=== PATIENT | female | born 1935 | race African-American/Black ===

== ENCOUNTER 2016-09-02 15:17 | Inpatient (IN) | payer OTHER ==
[~2016-09-02] VITALS: Ht 165.1 cm; Wt 61.7 kg
[2016-09-02 15:47] LABS: BASOPHILS % (AUTO) 0.7 % (0.0-2.0); EOSINOPHILS # (AUTO) 0.1 /CMM (0.0-0.7); EOSINOPHILS % (AUTO) 0.8 % (0.0-6.0); HEMATOCRIT 40 % (33-45); HEMOGLOBIN 13.6 g/dL (11.5-14.8); LYMPHOCYTES # (AUTO) 2.9 /CMM (0.8-4.8); LYMPHOCYTES % (AUTO) 44.4 % (20.0-44.0); MEAN CORPUSCULAR HEMOGLOBIN 29 PG (26.0-33.0); MEAN CORPUSCULAR HGB CONC 34 g/dl (31.0-36.0); MEAN CORPUSCULAR VOLUME 84 fL (82-100); MONOCYTES # (AUTO) 0.6 /CMM (0.1-1.30); MONOCYTES % (AUTO) 8.5 % (2.0-12.0); NEUTROPHILS # (AUTO) 2.9 /CMM (1.8-8.9); NEUTROPHILS % (AUTO) 45.6 % (43.0-81.0); PLATELET COUNT (AUTO) 143 /CMM (150-450); RDW COEFFICIENT OF VARIATION 11.8 (11.5-15.0); RED BLOOD CELL COUNT(AUTO) 4.77 MIL/uL (4.0-5.2); WHITE BLOOD COUNT (AUTO) 6.5 K/uL (4.3-11.0)
--- NOTE | 2016-09-02 16:01 | NUR ---
PATIENT ASSIGNED TO [place] [id number]
[2016-09-02 16:03] LABS: ACETAMINOPHEN 0 ug/ml (10-30); ALANINE AMINOTRANSFERASE 9 U/L (12-78); ALBUMIN 3.3 g/dL (3.4-5.0); ALCOHOL, BLOOD < 3 mg/dL (0-0); ALKALINE PHOSPHATASE 115 U/L (46-116); ASPARTATE AMINOTRANSFERASE 11 U/L (15-37); BILIRUBIN,DIRECT 0.1 mg/dL (0.0-0.2); BILIRUBIN,TOTAL 0.4 mg/dL (0.2-1.0); CALCIUM, SERUM 9.1 mg/dL (8.5-10.1); CARBON DIOXIDE 31 mmol/L (21-32); CHLORIDE 103 mmol/L (98-107); CREATININE 0.9 mg/dL (0.6-1.3); GLUCOSE 269 mg/dL (74-106); POTASSIUM 3.4 mmol/L (3.5-5.1); SODIUM SERUM 140 mmol/L (136-145); TOTAL PROTEIN, SERUM 7.3 g/dL (6.4-8.2); UREA NITROGEN, BLOOD 10 mg/dL (7-18)
[2016-09-02 16:34] LABS: APPEARANCE,URINE Cloudy (CLEAR); BILIRUBIN,URINE Negative (NEGATIVE); BLOOD, URINE Small Ery/uL (NEGATIVE); COLOR,URINE Yellow (YELLOW); KETONES,URINE Negative (NEGATIVE); LEUKOCYTE ESTERASE ,URINE Trace (NEGATIVE); NITRITE, URINE Negative (NEGATIVE); PROTEIN,URINE 30 mg/dl (NEGATIVE); UROBILINOGEN,URINE 0.2 EU/dL (0.2)
[2016-09-02 16:36] LABS: UGLUCOSE 500 MG/DL mg/dL (NEGATIVE)
[2016-09-02 16:44] LABS: CANNABINOID, URINE NEGATIVE (NEGATIVE); PHENCYCLIDINE SCREEN,URINE NEGATIVE (NEGATIVE)
[2016-09-02 16:52] LABS: ADD URINE CULTURE YES; BACTERIA,URINE Many /HPF (None Seen); RBC,URINE 0-3 /HPF (0-2); SQUAMOUS EPITHELIAL CELL,UR Rare /HPF (None Seen)
[2016-09-02] MEDS ORDERED: CEPHALEXIN MONOHYDRATE 500 MG CAPSULE PO ONE ×2 (17:00→17:21)
--- NOTE | 2016-09-02 18:34 | NUR ---
REPORT GIVEN TO MERLENE HINOJOSA FOR [facility]
[2016-09-02 20:00] VITALS: BP 181/85
[2016-09-02] MEDS ORDERED: MAG HYDROX/AL HYDROX/SIMETH 30 ML UDC PO PRN (20:30)
[2016-09-02] MEDS ORDERED: MAGNESIUM HYDROXIDE 30 ML UDC PO PRN (20:30)
[2016-09-02] MEDS ORDERED: ACETAMINOPHEN 325 MG TABLET PO PRN (20:30)
[2016-09-02] MEDS ORDERED: LORAZEPAM 0.5 MG TABLET PO PRN (20:30)
[2016-09-02] MEDS ORDERED: TEMAZEPAM 7.5 MG CAPSULE PO PRN (20:30)
[2016-09-02] MEDS ORDERED: [UNRECOGNIZED DRUG - CODE] (21:48)
[2016-09-02] MEDS ORDERED: DONE5TAB34 PO (21:48)
[2016-09-02] MEDS ORDERED: BENA40TA2 PO (21:48)
[2016-09-02] MEDS ORDERED: ASPI-991 PO (21:48)
[2016-09-02] MEDS ORDERED: METF500T4 PO (21:48)
[2016-09-02] MEDS ORDERED: ATOR20TA PO (21:48)
[2016-09-02] MEDS ORDERED: NITR100C15 PO (21:48)
[2016-09-02] MEDS ORDERED: BENA20TA2 PO (21:48)
[2016-09-02] MEDS ORDERED: ONDANSETRON 4 MG TAB.RAPDIS ONE ×2 (22:37→23:12)
[2016-09-02] MEDS ORDERED: BENAZEPRIL HCL 20 MG TABLET PO SCH (23:00)
[2016-09-02] MEDS ORDERED: ONDANSETRON 4 MG TAB.RAPDIS PO PRN (23:00)
--- NOTE | 2016-09-02 23:32 | NUR ---
ADMITTED NOTES THIS 81Y/O FEMALE ADMITTED FROM [facility] ER. IS ON 5150 HOLD , GD PER HOLD PT. HAS NOT BEEN TENDING TO SELF CARE , UP ON ASSESSMENT PT IS A/0 X ,2,3 ,PT IS DEPRESSIVE , COOPERATIVE AT THIS TIME , PSYCHIATRIC DX OF DEPRESSION , MEDICAL DX OF HTN DM HYPERLIPIDEMIA, SKIN ASSESSMENT DONE NOTED OLD SCRATCH SMITH ON BACK PICTURE TAKEN AND PLACED IN CHART NO ACUTE DISTRESS NOTED CONTRABAND CHECK DONE, SAFE ENVIRONMENT PROVIDED , BOTH MD AWARE OF NEW ADMISSION AND MEDICATION, NEW ORDERS RECEIVED AND CARRIED OUT. WILL CONTINUE TO MONITOR FOR SAFETY AND BEHAVIOR .
[2016-09-03 08:00] VITALS: BP 156/80
[2016-09-03] MEDS: SERTRALINE HCL 25 MG TABLET PO SCH (08:20)
[2016-09-03] MEDS: NITROFURANTOIN/NITROFURAN MAC 100 MG CAPSULE PO SCH ×2 (08:21→16:32)
[2016-09-03] MEDS: BENAZEPRIL HCL 20 MG TABLET PO SCH (08:21)
[2016-09-03] MEDS ORDERED: NITROFURANTOIN/NITROFURAN MAC 100 MG CAPSULE PO SCH (09:00)
[2016-09-03 09:33] LABS: CREATININE 0.9 mg/dL (0.6-1.3)
[2016-09-03] MEDS: ASPIRIN EC 81 MG TABLET.DR PO SCH (09:37)
[2016-09-03] MEDS: METFORMIN 500 MG TABLET PO SCH ×2 (09:37→16:33)
[2016-09-03] MEDS ORDERED: DEXTROSE 50%-WATER 50 ML DISP.SYRIN IV PRN (11:30)
[2016-09-03] MEDS: BLOOD SUGAR DIAGNOSTIC 1 EACH STRIP IN SCH ×3 (12:07→21:47)
[2016-09-03] MEDS: INSULIN REGULAR, HUMAN 100 UNIT/ML 3 ML VIAL SQ PRN ×3 (12:14→22:02)
--- NOTE | 2016-09-03 13:25 | NUR ---
Patient spoke with patient regarding a usp facility placement or Assisted Living facility as options. However patient refused and stated that she wanted to return home to her apartment in a senior citizen housing located at [address] [place] [address].
[2016-09-03] MEDS ORDERED: POTASSIUM CHLORIDE 20 MEQ TAB.PRT.SR PO ONE (13:30)
[2016-09-03 15:59] VITALS: BP_SYST 132; BP_SYST 151; BP_DIAS 61; BP_DIAS 83
[2016-09-03 20:00] VITALS: BP 146/76
[2016-09-03] MEDS: DONEPEZIL 5 MG TABLET PO SCH (21:02)
[2016-09-03] MEDS: ATORVASTATIN 10 MG TABLET PO SCH (21:03)
[2016-09-03] MEDS: INSULIN DETEMIR 100 UNIT/ML CARTRIDGE SQ SCH (22:01)
[2016-09-04] MEDS: BLOOD SUGAR DIAGNOSTIC 1 EACH STRIP IN SCH ×4 (07:38→21:32)
[2016-09-04] MEDS: INSULIN REGULAR, HUMAN 100 UNIT/ML 3 ML VIAL SQ PRN ×4 (07:40→21:37)
[2016-09-04 08:00] VITALS: BP 139/87
[2016-09-04] MEDS: NITROFURANTOIN/NITROFURAN MAC 100 MG CAPSULE PO SCH ×2 (08:17→16:39)
[2016-09-04] MEDS: ASPIRIN EC 81 MG TABLET.DR PO SCH (08:17)
[2016-09-04] MEDS: METFORMIN 500 MG TABLET PO SCH ×2 (08:17→16:39)
[2016-09-04] MEDS: BENAZEPRIL HCL 20 MG TABLET PO SCH (08:17)
[2016-09-04] MEDS: SERTRALINE HCL 25 MG TABLET PO SCH (08:18)
--- NOTE | 2016-09-04 13:41 | NUR ---
Initial Discharge Plan: Per patient, she lives alone in an apartment in a senior citizen housing located at [address] [place] [address]. Per patient, she wants to return to the senior citizen housing. food service worker attempted to contact her person of contact Brenna Ch / / however, she did not answer. food service worker left her a voicemail with her contact information. food service worker will help form a safe and proper discharge. food service worker will follow-up with APS regarding her case.
--- NOTE | 2016-09-04 13:52 | NUR ---
cinder worker spoke to APS social services specialist Shauna who stated that they were concerned about her living conditions and stated that patient is somewhat of a hoarder. APS social services specialist Shauna stated that they have attempted to get her a caregiver but her insurance will not approve it. APS social services specialist Shauna stated that if patient returns home they would have to follow-up with her and conduct a welfare check. cinder worker will follow-up.
--- NOTE | 2016-09-04 13:58 | NUR ---
UR Update: secondary social studies teacher faxed clinicals (Psych H&P, Med H&P, face sheet, med list, 5150 hold, psych progress note) to Zoey ([phone]) corrections caseworker for [facility]. layout worker will follow-up. AUTHORIZATION# [id number]
--- NOTE | 2016-09-04 15:05 | NUR ---
Patient spoke to patient again regarding placement options (SNF, [facility]) patient still refuses placement and wants to return home an apartment in a senior citizen housing located at [address] [place] [address].
[2016-09-04 16:00] VITALS: BP 150/83
[2016-09-04 16:10] VITALS: BP 150/83
--- NOTE | 2016-09-04 16:14 | NUR ---
utility maintenance worker spoke with Hanna reno Service Clerk who feels that patient should not return home because of her living conditions. Hanna provided numbers to patient's doctors: Primary Care Doctor Mani No and doctor William Zambrano . She also provided a phone number for Rustam rifle case repairer from [facility] ([phone] ext. [phone]. utility maintenance worker will follow-up.
[2016-09-04 20:00] VITALS: BP 150/75
[2016-09-04] MEDS: DONEPEZIL 5 MG TABLET PO SCH (21:32)
[2016-09-04] MEDS: ATORVASTATIN 10 MG TABLET PO SCH (21:32)
[2016-09-04] MEDS: INSULIN DETEMIR 100 UNIT/ML CARTRIDGE SQ SCH (21:36)
[2016-09-05] MEDS: BLOOD SUGAR DIAGNOSTIC 1 EACH STRIP IN SCH ×4 (07:30→21:34)
[2016-09-05 08:00] VITALS: BP 151/70
[2016-09-05] MEDS: METFORMIN 500 MG TABLET PO SCH ×2 (09:32→18:07)
[2016-09-05] MEDS: SERTRALINE HCL 25 MG TABLET PO SCH (09:32)
[2016-09-05] MEDS: ASPIRIN EC 81 MG TABLET.DR PO SCH (09:32)
[2016-09-05] MEDS: BENAZEPRIL HCL 20 MG TABLET PO SCH (09:32)
[2016-09-05] MEDS: NITROFURANTOIN/NITROFURAN MAC 100 MG CAPSULE PO SCH ×2 (09:32→18:07)
[2016-09-05] MEDS: INSULIN REGULAR, HUMAN 100 UNIT/ML 3 ML VIAL SQ PRN ×4 (09:37→21:45)
--- NOTE | 2016-09-05 11:09 | NUR ---
DR. LYNCH GAVE AN ORDER FOR THE DENIAL RIGHTS FOR ROOM SEARCH TO LOOK FOR THE MISSING CORDLESS PHONES.
[2016-09-05 16:00] VITALS: BP 156/64
[2016-09-05 20:00] VITALS: BP 129/54
[2016-09-05] MEDS: ATORVASTATIN 10 MG TABLET PO SCH (21:34)
[2016-09-05] MEDS: DONEPEZIL 5 MG TABLET PO SCH (21:35)
[2016-09-05] MEDS: INSULIN DETEMIR 100 UNIT/ML CARTRIDGE SQ SCH (21:44)
[2016-09-06] MEDS: BLOOD SUGAR DIAGNOSTIC 1 EACH STRIP IN SCH ×4 (07:49→22:42)
[2016-09-06 08:00] VITALS: BP 154/70
[2016-09-06] MEDS: NITROFURANTOIN/NITROFURAN MAC 100 MG CAPSULE PO SCH ×2 (09:06→17:07)
[2016-09-06] MEDS: SERTRALINE HCL 25 MG TABLET PO SCH (09:06)
[2016-09-06] MEDS: BENAZEPRIL HCL 20 MG TABLET PO SCH (09:06)
[2016-09-06] MEDS: ASPIRIN EC 81 MG TABLET.DR PO SCH (09:06)
[2016-09-06] MEDS: METFORMIN 500 MG TABLET PO SCH ×2 (09:06→17:07)
[2016-09-06] MEDS: INSULIN REGULAR, HUMAN 100 UNIT/ML 3 ML VIAL SQ PRN ×4 (09:12→22:45)
--- NOTE | 2016-09-06 16:25 | NUR ---
PATIENT V/S TAKEN LEFT ARM BP-185/80, P-74, RIGHT ARM BP-183/98, P-73, PATIENT HAS NO ANY COMPLAIN AT THIS TIME, CALLED DR QUIROGA AND GET ORDER HYDRALAZINE 20 MG PO Q 6 HR PRN FOR SBP> 160, ORDER TAKEN, AND CARRIED OUT.
[2016-09-06] MEDS: hydrALAZINE HCL 10 MG TABLET PO PRN (17:07)
--- NOTE | 2016-09-06 18:33 | NUR ---
ADMINISTERED ATIVAN 0.5 MG PO PRN FOR ANXIETY, V/S TAKEN BP 178/76, P-75, CONTINUED MONITORING.
--- NOTE | 2016-09-06 18:40 | NUR ---
PATIENT IN THE ROOM, LTING BLADIMIR OF THE BED, V/S RETAKEN BP- LEFT ARM 181/ 89, P- 75, RIGHT ARM BP- 163/ 90, P-74, NOTIFIED DR QUIROGA AND GET NEW ORDER REPEAT ORDER HYDRALAZINE 20 MG PO X1 NOW, ORDER TAKEN, AND CARRIED OUT.
[2016-09-06] MEDS ORDERED: hydrALAZINE HCL 10 MG TABLET PO ONE (19:00)
--- NOTE | 2016-09-06 19:07 | NUR ---
ADMINISTERED APRESOLINE 20 MG PO X1 NOW PRESCRIBED BY MD, BP- 181/89, P-74, CONTINUED MONITORING, ENDORSED ONCOMING NURSE FOR CONTINUATION OF CARE.
[2016-09-06 20:21] VITALS: BP 160/74
[2016-09-06] MEDS: ATORVASTATIN 10 MG TABLET PO SCH (22:46)
[2016-09-06] MEDS: DONEPEZIL 5 MG TABLET PO SCH (22:46)
[2016-09-06] MEDS: INSULIN DETEMIR 100 UNIT/ML CARTRIDGE SQ SCH (22:50)
[2016-09-06 23:30] VITALS: BP 138/70
--- NOTE | 2016-09-07 06:08 | NUR ---
PT. REFUSED TAKE THE PICTURE OF BACK ENCOURAGED X 3 STILL REFUSED
[2016-09-07 08:59] VITALS: BP 137/67
[2016-09-07] MEDS: NITROFURANTOIN/NITROFURAN MAC 100 MG CAPSULE PO SCH ×2 (09:02→17:52)
[2016-09-07] MEDS: METFORMIN 500 MG TABLET PO SCH ×2 (09:02→17:52)
[2016-09-07] MEDS: BLOOD SUGAR DIAGNOSTIC 1 EACH STRIP IN SCH ×4 (09:02→22:03)
[2016-09-07] MEDS: SERTRALINE HCL 25 MG TABLET PO SCH (09:02)
[2016-09-07] MEDS: BENAZEPRIL HCL 20 MG TABLET PO SCH (09:03)
[2016-09-07] MEDS: INSULIN REGULAR, HUMAN 100 UNIT/ML 3 ML VIAL SQ PRN ×4 (09:04→22:05)
[2016-09-07] MEDS: ASPIRIN EC 81 MG TABLET.DR PO SCH (09:07)
--- NOTE | 2016-09-07 10:13 | NUR ---
UR Update: rn social work faxed clinicals (Psych H&P, Med H&P, face sheet, med list, 5150 hold, psych progress note) to Zoey ([phone]) major case detective for [facility]. farmworker machine will follow-up. AUTHORIZATION# [id number]
[2016-09-07 16:00] VITALS: BP 155/96
--- NOTE | 2016-09-07 16:58 | NUR ---
immigration case worker spoke with patient regarding placement and is still refusing placement and wants to return home an apartment in a senior citizen housing located at [address] [place] [address]. [place] [address].
[2016-09-07] MEDS: hydrALAZINE HCL 10 MG TABLET PO PRN (17:53)
--- NOTE | 2016-09-07 17:55 | NUR ---
ADMINISTERED APRESOLINE 20 MG PO PRN FOR BP 161/ 96, P-74, PATIENT HAS NO S/O OF HYPERTENSION, A/O X2/3, CONTINUED MONITORING.
[2016-09-07 21:39] VITALS: BP 156/62
[2016-09-07 21:40] VITALS: BP 156/62
[2016-09-07] MEDS: INSULIN DETEMIR 100 UNIT/ML CARTRIDGE SQ SCH (22:06)
[2016-09-07] MEDS: ATORVASTATIN 10 MG TABLET PO SCH (22:06)
[2016-09-07] MEDS: DONEPEZIL 5 MG TABLET PO SCH (22:06)
[2016-09-08] MEDS: BLOOD SUGAR DIAGNOSTIC 1 EACH STRIP IN SCH ×2 (07:39→12:05)
[2016-09-08 08:00] VITALS: BP 150/77
[2016-09-08] MEDS: SERTRALINE HCL 25 MG TABLET PO SCH (08:07)
[2016-09-08] MEDS: ASPIRIN EC 81 MG TABLET.DR PO SCH (08:07)
[2016-09-08] MEDS: METFORMIN 500 MG TABLET PO SCH (08:07)
[2016-09-08] MEDS: NITROFURANTOIN/NITROFURAN MAC 100 MG CAPSULE PO SCH (08:07)
[2016-09-08 08:08] VITALS: BP 150/77
[2016-09-08] MEDS: BENAZEPRIL HCL 20 MG TABLET PO SCH (08:08)
--- NOTE | 2016-09-08 09:22 | NUR ---
poultry offal worker spoke to patient regarding placement such as a halfway facility or an Assisted Living facility. Patient stated, "that is silly, I am fine" patient still refusing other placement and wants to return home to her apartment in a senior citizen housing located at [address] [place] [address]. [place] [address].
--- NOTE | 2016-09-08 09:25 | NUR ---
social worker clinical spoke to Elvin Juarez caser shoe parts from [facility] regarding a shelter facility for the patient. Elvin stated that patient would not qualify as she is ambulatory and she does not require physical therapy. Elvin stated that her insurance would more likely not authorize a shelter facility since it does not appear to have any skilled needs. Elvin stated that he would follow-up with the patient.
--- NOTE | 2016-09-08 10:05 | NUR ---
Social Work Therapist spoke to [facility] social work therapist George to inform her that patient will be returning home. fibreglass lay up worker stated that she will follow-up with patient.
[2016-09-08] MEDS: INSULIN REGULAR, HUMAN 100 UNIT/ML 3 ML VIAL SQ PRN ×2 (10:20→12:06)
--- NOTE | 2016-09-08 11:10 | NUR ---
GPS RN NOTE: PT REFUSED SKIN ASSESSMENT AND SHOWER WILL CONTINUE MONITORING
--- NOTE | 2016-09-08 12:22 | NUR ---
pack worker spoke to residence coordinator Brenna Ch ([phone]) who stated that someone will be there to meet the patient and open the door to her unit when patient gets to the building.
--- NOTE | 2016-09-08 14:47 | NUR ---
GPS RN NOTE: PT DISCHARGE TODAY HOME VIA TAXI Brenna Ch ([phone]) stated that someone will be there to meet the patient and open the door to her unit when patient gets to the building. PATIENT IN STABLE CONDITION VSS STABLE NO S/S DISTRESS NOTED, EXIT CARE DONE PRINTED SIGN AND GIVEN TO PATIENT , DR SYKES NOTIFIED DR GUERRERO AWARE PRESCRIPTION EXPLAIN AND GIVEN TO PATIENT. PATIENT VERBALIZED UNDERSTANDING , ALL BELONGINGS RETURNED TO PATIENT.
--- NOTE | 2016-09-08 15:27 | NUR ---
Discharge note: Patient was discharged back home to her apartment at the [facility] located at [address] [place] [address]. Via taxi. Patient did not have any family to notify. Patient left with no distress. Patient's mood and affect were appropriate upon discharge. Patient denied suicidal/homicidal ideations. Patient was provided with follow-up appointments to Dr. Otoole on September 30, 2016 at 1:30pm ([phone]) [address] [place] [address] [place] [address]. Patient was also provided with an appointment with a psychotherapist Angi Crocker ([phone]) [address] [facility] [address]. Patient was referred to [facility] ) and Alia from [facility] stated that she would follow-up with patient. Facilitated info to IDT team who are in agreement with discharge arrangement. The multidisciplinary exitcare form was done, printed, signed, and given to the patient.
--- NOTE | 2016-09-08 15:38 | NUR ---
[facility] faxed Home Health referral to [facility] (fax: [phone]/ ) Alia from [facility] stated that she would follow-up with the patient.
--- NOTE | 2016-09-09 16:48 | NUR ---
UR Update: director of social work faxed discharge summary to Zoey ([phone]) nurse outreach case manager for [facility]. AUTHORIZATION# [id number]
== END 2016-09-08 14:45 | disposition home health service (06) | DRG 880 ==
LOC: ER 15:20 → GPS 17:59
PROVIDERS: ADMIT Psychiatry & Neurology Psychiatry; ATTEND Internal Medicine
DX: F41.9 Anxiety disorder, unspecified (principal); E11.65 Type 2 diabetes mellitus with hyperglycemia; N39.0 Urinary tract infection, site not specified; F29 Unspecified psychosis not due to a substance or known physiological condition; E78.5 Hyperlipidemia, unspecified; F03.90 Unspecified dementia, unspecified severity, without behavioral disturbance, psychotic disturbance, mood disturbance, and anxiety; I10 Essential (primary) hypertension; E87.6 Hypokalemia; B96.89 Other specified bacterial agents as the cause of diseases classified elsewhere
CPT/HCPCS: 36415; 70450-TC; 80048-TC; 80061-TC; 80076-TC; 80305; 81000-TC; 82565-TC; 82962-TC; 85025-TC; 87081-TC; 87086-TC; 87186-TC; A4606; G0480; G6039-TC; J1815; Q0162; Z7610